=== PATIENT | male | born 1980 | race Caucasian/White ===

== ENCOUNTER 2018-03-22 02:59 | Emergency (ER) | payer OTHER ==
[~2018-03-22] VITALS: Ht 177.8 cm; Wt 131.5 kg
[~2018-03-22 02:59] MED LIST: AUGMENTIN; CIPROFLOXACIN500 M1 PO; LORTAB; NAPROSYN500 MG PO; NOHOMEMEDICATIONS; NORCO 5-325 TA1 EACH; NORCO 5-325 TA1 EACH PO; ONDANSETRON HCL4 M2 PO; PERCOCET 5-3251 EACH PO; SENNA; ZOFRAN ODT4 MG PO
[2018-03-22] MEDS ORDERED: DIOVAN160 MG PO (03:19)
[2018-03-22 03:29] LABS: ABSOLUTE BASOPHILS 0.1 thou/uL (0.0-0.2); ABSOLUTE EOSINOPHILS 0.2 thou/uL (0.0-0.7); ABSOLUTE LYMPHOCYTES 3.5 thou/uL (0.8-5.3); ABSOLUTE NEUTROPHILS 5.7 thou/uL (1.6-8.1); BASOPHILS 0.7 %; EOSINOPHILS 1.6 %; HEMATOCRIT 42.8 % (42.0-52.0); HEMOGLOBIN 14.9 gm/dL (14.0-18.0); LYMPHOCYTES 33.6 %; MCH 29.1 pg (26.0-34.0); MCHC 34.8 g/dL (28.0-37.0); MCV 83.8 fL (80.0-100.0); MONOCYTES 9.7 %; MPV 8.1 fl. (7.2-11.1); NUCLEATED RBCS 0 /100WBC; PLATELET COUNT* 235 thou/uL (150-400); POLYS 54.4 %; RBC 5.11 mil/uL (4.50-6.00); RDW-CV 13.5 % (10.5-14.5); WBC 10.4 thou/uL (4.0-11.0)
[2018-03-22 03:36] LABS: CALCIUM 8.8 mg/dL (8.5-10.1); CREATININE 1.4 mg/dL (0.6-1.3); POTASSIUM 3.6 mmol/L (3.5-5.1)
[2018-03-22 03:41] LABS: ALBUMIN 3.7 g/dL (3.4-5.0); TOTAL BILIRUBIN 0.3 mg/dL (<0.1-1.0); TOTAL PROTEIN 7.2 g/dL (6.4-8.2)
[2018-03-22 03:45] LABS: URINE BLOOD 3+ (Negative); URINE CLARITY SL CLOUDY; URINE COLOR YELLOW; URINE GLUCOSE-RANDOM NEGATIVE (Negative); URINE KETONES NEGATIVE (Negative); URINE LEUKOCYTES-REFLEX NEGATIVE (Negative); URINE NITRITE-REFLEX NEGATIVE (Negative); URINE PROTEIN 1+ (Negative); URINE SPECIFIC GRAVITY >= 1.030 (1.005-1.030)
[2018-03-22 03:51] LABS: URINE BILIRUBIN 1+ (Negative)
[2018-03-22 03:52] LABS: ICTOTEST (BILI CONFIRMATORY) Negative (Negative)
[2018-03-22 05:05] LABS: SQUAMOUS 4-10 Moderate /LPF (0-3)
[2018-03-22 05:07] LABS: CASTS None Seen /LPF (None Seen); URINE RBC >20 Many /HPF (0-2); URINE WBC-REFLEX 0-5 Rare /HPF (0-5)
[2018-03-22 05:08] LABS: BACTERIA-REFLEX 1-9 Few /HPF (None Seen); CRYSTALS None Seen /LPF (None Seen); YEAST-REFLEX Present (None Seen)
[2018-03-22] MEDS ORDERED: ZOFRAN ODT4 MG PO (06:19)
[2018-03-22] MEDS ORDERED: NORCO 5-325 TA1 EACH PO (06:19)
[2018-03-22 06:41] VITALS: BP 129/77
== END 2018-03-22 06:41 | disposition home or self-care (01) ==
LOC: M.ERS 02:59
PROVIDERS: Personal Emergency Response Attendant
DX: N23 Unspecified renal colic (principal); I10 Essential (primary) hypertension; Z90.49 Acquired absence of other specified parts of digestive tract

== ENCOUNTER 2021-03-12 12:13 | Observation (INO) | payer OTHER ==
[~2021-03-12] VITALS: Ht 177.8 cm; Wt 138.3 kg
--- NOTE | ~2021-03-12 | OP ---
[facility] [address] [place] [address] OPERATIVE REPORT Name: IKER LORA Room: [address] Rich#: [id number] Admission: 03/12/21 Attend Phys: Ashok Pierce Discharge: Date of : 82 Report #: [id number] THIS REPORT FOR: cc: Tarun Diana Ghaison F. DO Patterson, Jonathan D. MD ~ DOC #: [id number] cc: DO Ashok Benítez MD DATE OF SURGERY: 03/12/2021 PREOPERATIVE DIAGNOSIS: Infected pilonidal cyst. POSTOPERATIVE DIAGNOSIS: Infected pilonidal cyst. OPERATION: Pilonidal cystectomy. SURGEON: Ashok Pierce MD. ANESTHESIA: General. ESTIMATED BLOOD LOSS: Minimal. SPECIMENS: 1. Abscess fluid for culture and sensitivity. 2. Pilonidal cyst. DESCRIPTION OF PROCEDURE: After informed consent was obtained, the patient was brought to the operating room and placed supine. SCDs were placed and working, preoperative antibiotics were administered, general anesthesia was induced. The patient was placed in the right lateral decubitus position. The area was then prepped and draped in the usual sterile fashion. Elliptical incision measuring approximately 5 x 3 cm was made was made over the pilonidal cyst. Cautery dissection was made down through the skin. Once this happened, a copious amount of pus was expressed from the cavity. The pilonidal cyst was excised with cautery. The cavity underneath was then irrigated with normal saline. It was then packed with sterile gauze. Sterile dressings were applied. COMPLICATIONS: None. DISPOSITION: The patient was taken to recovery in satisfactory condition. MD KRISTINA Ray/BRODY/[place] [address] OPERATIVE REPORT Name: IKER LORA [address] [id number] Admission: 03/12/21 Attend Phys: Ashok Pierce Discharge: Date of : 82 Report #: [id number] By: [id number] Pierce MD /nt
[~2021-03-12 12:13] MED LIST changes: +DIOVAN160 MG PO
[2021-03-12 12:21] VITALS: BP 174/89
[2021-03-12] MEDS ORDERED: CRESTOR5 MG PO (12:25)
[2021-03-12] MEDS ORDERED: NORVASC10 MG PO (12:25)
[2021-03-12] MEDS ORDERED: VITAMIN D250 MCG PO (12:25)
[2021-03-12] MEDS ORDERED: LOSARTAN-HCTZ1 EAC3 PO (12:26)
[2021-03-12] MEDS ORDERED: CARVEDILOL25 MG PO (12:26)
[2021-03-12] MEDS ORDERED: CATAPRES0.2 MG PO (12:27)
[2021-03-12 12:51] LABS: ABSOLUTE BASOPHILS 0.1 thou/uL (0.0-0.2); ABSOLUTE EOSINOPHILS 0.2 thou/uL (0.0-0.7); ABSOLUTE LYMPHOCYTES 1.3 thou/uL (0.8-5.3); ABSOLUTE MONOCYTES 1.7 thou/uL (0.0-1.2); ABSOLUTE NEUTROPHILS 9.9 thou/uL (1.6-8.1); BASOPHILS 0.5 %; EOSINOPHILS 1.3 %; HEMATOCRIT 41.6 % (42.0-52.0); HEMOGLOBIN 14.6 gm/dL (14.0-18.0); LYMPHOCYTES 10.2 %; MCH 30.1 pg (26.0-34.0); MCHC 35.2 g/dL (28.0-37.0); MCV 85.6 fL (80.0-100.0); MONOCYTES 12.6 %; MPV 8.1 fl. (7.2-11.1); NUCLEATED RBCS 0 /100WBC; PLATELET COUNT* 217 thou/uL (150-400); POLYS 75.4 %; RBC 4.85 mil/uL (4.50-6.00); RDW-CV 13.5 % (10.5-14.5); WBC 13.1 thou/uL (4.0-11.0)
[2021-03-12 12:59] LABS: CALCIUM 8.7 mg/dL (8.5-10.1); CREATININE 1.2 mg/dL (0.6-1.3); POTASSIUM 3.9 mmol/L (3.5-5.1)
[2021-03-12 13:04] LABS: ALBUMIN 3.3 g/dL (3.4-5.0); TOTAL BILIRUBIN 0.6 mg/dL (<0.1-1.0); TOTAL PROTEIN 7.8 g/dL (6.4-8.2)
[2021-03-12 15:10] VITALS: BP 170/82
[2021-03-13 01:31] VITALS: BP 124/61
[2021-03-13 06:22] VITALS: BP 131/66
[2021-03-13 08:00] VITALS: BP 123/69
[2021-03-13 14:21] VITALS: BP 123/69
== END 2021-03-13 15:59 | disposition home or self-care (01) ==
LOC: M.ERS 12:13 → M.TBA-ER 12:58 → M.ORTHSURG 12:58
PROVIDERS: Nurse Practitioner Family; ADMIT Surgery; ATTEND Surgery
DX: L05.91 Pilonidal cyst without abscess (principal); Z20.822 Contact with and (suspected) exposure to COVID-19; I10 Essential (primary) hypertension; G43.909 Migraine, unspecified, not intractable, without status migrainosus; Z79.899 Other long term (current) drug therapy